=== PATIENT | female | born 1975 | race African-American/Black ===

== ENCOUNTER 2016-03-05 13:51 | Emergency (ER) | payer OTHER ==
[~2016-03-05] VITALS: Ht 170.2 cm; Wt 72.6 kg
[~2016-03-05 13:51] MED LIST: ASPIRIN81 MG ORAL
--- NOTE | 2016-03-05 14:50 | Emergency Room Report ---
History of Present Illness General Chief Complaint: Skin Rash/Abscess Present Illness HPI 40-year-old female presents to the emergency department for vaginal discharge x2 weeks in addition to recent incision and drainage of Bartholin's gland cyst which requires packing removal/wound care. Patient denies nausea, vomiting, fevers, chills. Patient reports increase in white vaginal discharge denies recent unprotected intercourse her history of STI is patient states she has a history of BV. Patient denies erythema or increased temperature palpation around the incision site. She reports that the wound is currently draining. She denies being prescribed antibiotic medication. Denies CP, Palpitations, LOC , AMS, dizziness, Changes in Vision, Sensation, paresthesias, or a sudden severe headache. 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 Hx Transient Ischemic Attacks: Yes Hx Memory Loss: Yes Hx Concentration Difficulty: Yes Hx Speech Problem: Yes - slurred Hx Dizziness: Yes Hx Headaches: Yes Hx Weakness: Yes Review of Systems All Other Systems: negative except mentioned in HPI Physical Exam Vital Signs Date Time Temp Pulse Resp B/P Pulse Ox O2 Delivery O2 Flow Rate FiO2 03/05/16 14:06 98.4 84 20 107/72 100 Room Air Sp02 EP Interpretation: reviewed, normal General Appearance: no apparent distress, alert, GCS 15, non-toxic Head: normocephalic, atraumatic Eyes: bilateral eye PERRL, bilateral eye normal inspection ENT: hearing grossly normal, normal pharynx, no angioedema, normal voice Neck: full range of motion, supple/symm/no masses Respiratory: chest non-tender, lungs clear, normal breath sounds, speaking full sentences Cardiovascular #1: regular rate, rhythm, no edema Gastrointestinal: normal bowel sounds, non tender, soft, no guarding, no rebound Rectal: deferred Genitourinary: normal inspection, no CVA tenderness, other - 0.7cm incision noted in the right labia minor with wound packing in place, mild erythema noted , milk white vaginal d/c also noted, no CMT. Musculoskeletal: back normal, gait/station normal, normal range of motion, non- tender, no calf tenderness Neurologic: alert, oriented x3, responsive, motor strength/tone normal, sensory intact, speech normal Psychiatric: judgement/insight normal, memory normal, mood/affect normal, no suicidal/homicidal ideation Reflexes: 4+ bicep (R), 4+ bicep (L), 4+ tricep (R), 4+ tricep (L), 4+ knee (R) , 4+ knee (L) Skin: normal color, no rash, warm/dry, well hydrated Lymphatic: no adenopathy Medical Decision Making PA Attestation Dr. Gonzalez is my supervising Physician whom patient management has been discussed with. Diagnostic Impression: Primary Impression: Encounter for postoperative wound check Additional Impression: Bacterial vaginosis ER Course Pt. presents to the ED c/o 1) Vaginal d/c x 2 weeks in addition to, 2) Bartholins gland cyst I&D that needs packing removal. - Pt had cyst I&D 4 days ago, drain was removed and packing placed 2 days ago. Ddx considered but are not limited to UTi , STI, G & C, trichomonas, Vaginitis , cervicitis, Bartholins gland cyst or cellulitis. Vital signs: are WNL, pt. is afebrile H&PE are most consistent with vaginitis ORDERS: -Wet [place] PRep: few clue cells, no bacteria, yeast, or trichomonads per microbiology report. ED INTERVENTIONS: -packing removal -bacitracin applied. - DISCHARGE: At this time pt. is stable for d/c to home. Will provide printed patient care instructions, and any necessary prescriptions. Care plan and follow up instructions have been discussed with the patient prior to discharge. Last Vital Signs Date Time Temp Pulse Resp B/P Pulse Ox O2 Delivery O2 Flow Rate FiO2 03/05/16 14:06 98.4 84 20 107/72 100 Room Air Disposition: HOME, SELF-CARE Condition: Stable Scripts Metronidazole* (FLAGYL*) 500 Mg Tablet 500 MG ORAL BID, #14 TAB 0 Refills Prov: Louise Jorge P.A. 03/05/16 Doxycycline Monohydrate* (DOXYCYCLINE MONOHYDRATE*) 100 Mg Capsule 100 MG ORAL TWICE A DAY for 7 Days, #14 CAP 0 Refills Prov: Louise Jorge 03/05/16 Bacitracin/Polymyxin B Sulfate (BACITRACIN-POLYMYXIN OINTMENT) 28.35 Gm Oint...g. 1 APPLIC TP TID, #28.3 GM Prov: Louise Jorge 03/05/16 Patient Instructions: Bacterial Vaginosis, Bartholin Cyst or Abscess Additional Instructions: Take medications as directed. Follow up with PCP in 3-5 days Return sooner to ED if new symptoms occur, or current symptoms become worse. Louise Jorge Mar 05, 2016 14:50
[2016-03-05] MEDS ORDERED: BACITRACIN-P28.35 GM TP (14:52)
[2016-03-05] MEDS ORDERED: DOXYCYCLINE MO100 MG ORAL (14:52)
[2016-03-05] MEDS ORDERED: Bacitracin Oint UD TOPIC ONE (15:00)
[2016-03-05 15:06] VITALS: BP 117/71
[2016-03-05] MEDS ORDERED: METRONIDAZOLE500 MG ORAL (15:50)
[2016-03-05 16:02] VITALS: BP 120/71
[2016-03-05 16:10] VITALS: BP 117/71
== END 2016-03-05 16:10 | disposition home or self-care (01) ==
LOC: EMR 15:55
DX: Z48.89 Encounter for other specified surgical aftercare (principal); N76.0 Acute vaginitis; B96.89 Other specified bacterial agents as the cause of diseases classified elsewhere; Z86.73 Personal history of transient ischemic attack (TIA), and cerebral infarction without residual deficits
CPT/HCPCS: 87210; 99284